=== PATIENT | female | born 1970 | race Caucasian/White ===

== ENCOUNTER 2024-03-23 08:48 | Day surgery (SDC) | payer OTHER ==
[2024-03-21 11:09] LABS: Absolute Basophils 0.1 K/uL (0-0.5); Absolute Eosinophils 0.3 K/uL (0-0.5); Absolute Lymphocytes (CBC) 1.7 K/uL (0.7-4.9); Absolute Monocytes 0.5 K/uL (0.1-1.3); Absolute Neutrophil 6.1 K/uL (1.8-8.0); Basophils % 1.1 % (0-1.3); Hematocrit 41.8 % (36.0-45.0); Hemoglobin 14.1 g/dL (12.0-15.0); Lymphocytes % 19.6 % (15.3-44.8); MCH 28.3 pg (27.0-35.0); MCHC 33.8 g/dL (32.0-36.0); MCV 83.8 fL (80-100); MPV 8.7 fL (7.6-11.3); Monocytes % 6.1 % (3.3-12.3); Neutrophils % 70.2 % (41.7-73.7); Platelets 207 thou/uL (152-406); RBC Red Blood Cell Count 4.99 M/uL (3.86-4.86)
[2024-03-21 11:20] LABS: Albumin/Globulin Ratio 1.1 (1.1-1.8); Anion Gap 5.6 mEq/L (5.0-15.0); Bilirubin Total 0.5 mg/dL (0.2-1.0); Globulin 3.6 g/dL (2.3-3.5); Potassium 4.6 mEq/L (3.5-5.1); Protein, Total 7.6 g/dL (6.4-8.2)
[2024-03-23] MEDS: NA CHLORIDE 0.9% 1,000 ML ONE ×2 (09:15→11:30)
[2024-03-23] MEDS ORDERED: ONDANSETRON 4 MG/2 ML VIAL ONE (10:08)
[2024-03-23] MEDS ORDERED: KETOROLAC 30 MG/ML INJ ONE (10:08)
[2024-03-23] MEDS ORDERED: propofoL 200 MG/20 ML VIAL IV ONE (10:08)
[2024-03-23] MEDS ORDERED: LIDOCAINE 1% MPF 5 ML VIAL ONE (10:08)
[2024-03-23] MEDS ORDERED: MIDAZOLAM HCL 2 MG/2 ML INJ ONE (10:09)
[2024-03-23] MEDS ORDERED: ROCURONIUM 50 MG/5 ML VIAL IV ONE (10:09)
[2024-03-23] MEDS ORDERED: FENTANYL CITR 100 MCG/2 ML ONE (10:09)
[2024-03-23] MEDS: CEFOXITIN SODIUM 2 GM/VIAL ONE (10:42)
[2024-03-23] MEDS ORDERED: dexAMETHasone 10 MG/ML VIAL ONE (11:02)
[2024-03-23] MEDS ORDERED: NS 0.9% VIAL 10 ML ONE ×3 (11:09→11:11)
[2024-03-23] MEDS: LIDOCAINE HCL/EPINEPHRINE 20 ML MDV ONE (11:15)
[2024-03-23] MEDS ORDERED: GLYCOPYRROLATE 0.2 MG/ML SYR ONE (11:30)
--- NOTE | 2024-03-23 12:15 | P.OP ---
Preoperative diagnosis: Cholecystitis Postoperative diagnosis: Cholecystitis Primary procedure: Laparoscopic Cholecystectomy with ICG Anesthesia: GETA + Local Estimated blood loss: <5cc Specimen: Gallbladder Findings: Distended GB, non-filling of GB Complications: None Transferred to: Recovery Room Condition: Good
[2024-03-23 12:35] VITALS: O2SAT 97
[2024-03-23 13:12] VITALS: BP 121/60; TEMP 97.9
[2024-03-23] MEDS: HYDROCODONE/APAP 7.5/325 MG TAB ONE (13:26)
--- NOTE | 2024-03-23 22:45 | OP ---
Date of Procedure: 03/23/2024 Surgeon: Noelle Mckeon MD, Preoperative Diagnosis: Chronic cholecystitis. Postoperative Diagnosis: Chronic cholecystitis. Procedure Performed: Laparoscopic cholecystectomy with indocyanine green cholangiography. Anesthesia: General endotracheal plus local 1% lidocaine with epinephrine. Estimated Blood Loss: Less than 5 cc. Specimen: Gallbladder. Findings: Distended gallbladder and nonfilling of the gallbladder with indocyanine green due to sign ificant obstruction and indications of chronic cholecystitis noted. Midline small ventral hernias no noelle, 1 periumbilical, 1 infraumbilical. Complications: None. Disposition: The patient was transferred to recovery room in good condition. Procedure In Detail: After informed consent was obtained, the patient was prepped and draped in usua l sterile fashion. After adequate anesthesia was achieved, I anesthetized an area in the supraumbili howie position down to subcutaneous tissue. 5 mm 0-degree optical trocar was introduced in the abdomen without incident or complication. Insufflation was obtained to 15 mmHg. At this time, there was no injury to vital structures upon entry into the abdomen. Two additional trocars were placed, one in the epigastrium and one in the right upper quadrant. Both of these were 5 mm trocars, placed under d irect visualization without incident or complication. Insufflation was obtained to 15 mmHg at this t bela. I then changed the 5 mm trocar in the periumbilical position to a 12 mm trocar under direct vis ualization. The patient was positioned in head up position in right tilt. Ratcheted grasper was use d to grasp the patient's gallbladder, placed toward the patient's right shoulder, and dissection cont inued down the Fede pouch of the gallbladder. The gallbladder was quite distended, making graspi ng difficult, but possible with careful manipulation. Ultimately visualizing 2 structures entering t he gallbladder, identified as both the cystic duct and cystic artery. These structures were skeleton ized. Indocyanine green cholangiography was performed showing the common duct confluence; however, n o visualization of the cystic duct was appreciated despite multiple attempts indicating this was like ly indicative of a chronic cholecystitis type picture with a degree of distention and a stone near th e neck of the gallbladder. At this point, after the 2 structures were skeletonized and a critical vi ew of safety was obtained at this point, I then placed double Titanium clips doubly on the proximal s maxine and singly on the distal side of both cystic duct and cystic artery. I then ligated these struct ures between the Endo Chelsi without incident or complication. The gallbladder was then removed from the hepatic fossa without incident or complication, and sent off for pathologic examination. The ar ea was copiously irrigated. Indocyanine green cholangiography confirmed that there was no leakage of bile at the end of the procedure. I then suctioned out the remaining effluent. The gallbladder was sent off for pathologic examination at this point. I then inspected. There were no additional hemo static maneuvers required. The patient was positioned back in neutral position. Remaining air-fluid was suctioned out. The 12 mm trocar site was then closed using a Salas-Lyndsay suture passer with an 0 Vicryl in interrupted fashion, good approximation of tissues. The abdomen was then desufflated under direct visualization without incident or complications. Remaining trocars were removed. All skin incisions were then copiously irrigated and closed with a 4-0 Monocryl in a running fashion. De rmabond was placed over top. The patient tolerated procedure without incident or complications, and transferred to PACU in good condition. All counts were correct at the end of the case. ALMAS/CALIN Voice ID: [id number] Report ID: [id number]
== END 2024-03-23 13:40 | disposition home or self-care (01) ==
LOC: OR 08:48
PROVIDERS: ATTEND Surgery
PROC: BF50200 Other Imaging of Bile Ducts using Fluorescing Agent, Indocyanine Green Dye, Intraoperative (ICD-10-PCS; 2024-03-23)
PROC: 0FT44ZZ Resection of Gallbladder, Percutaneous Endoscopic Approach (ICD-10-PCS; principal; 2024-03-23 10:45)
DX: K80.10 Calculus of gallbladder with chronic cholecystitis without obstruction (principal); R10.11 Right upper quadrant pain
CPT/HCPCS: 85025; 36415; 82947 ×2; 88304; 80053; 47563; A4216 ×3; J2704; J2001; J2250; J3010; J1100; J0694; J2405; J7030 ×2